=== PATIENT | female | born 1985 | race Caucasian/White ===

== ENCOUNTER 2017-11-02 02:51 | Emergency (ER) | payer OTHER ==
[2017-11-02 03:05] VITALS: TEMP 37; Ht 160 cm
[2017-11-02] MEDS ORDERED: ONDANSETRON 4MG OD TAB PO STA (03:09)
[2017-11-02 05:16] VITALS: BP 101/71; PULSE 88; O2SAT 98
--- NOTE | 2017-11-02 06:45 | DIAGNOSTIC IMAGING REPORT ---
CT OF THE CERVICAL SPINE WITHOUT CONTRAST CLINICAL HISTORY: Fall. COMPARISON STUDY: No previous studies for comparison. TECHNIQUE: Helical axial images of the cervical spine were obtained without IV contrast. Sagittal and coronal reconstructions were viewed. A dose lowering technique was utilized adhering to the principles of ALARA. FINDINGS: There is straightening of the normal cervical lordosis. Craniocervical junction is intact. No acute cervical spine fracture is identified. There is no prevertebral edema. No pneumothorax is shown within visualized portions of the lung apices. Facet joints are intact. IMPRESSION: No acute cervical spine fracture or subluxation. Electronically signed by: Joe Calle M.D. 11/02/2017 6:44 AM Dictated Date/Time: 11/02/2017 6:41 AM
--- NOTE | 2017-11-02 07:09 | DIAGNOSTIC IMAGING REPORT ---
HEAD CT NONCONTRAST CT DOSE: 1091.19 mGy.cm HISTORY: Fall. Head injury TECHNIQUE: Multiaxial CT images of the head were performed without the use of intravenous contrast. Automated exposure control was utilized for this study. A dose lowering technique was utilized adhering to the principles of ALARA. Comparison: None. Findings: The paranasal sinuses and mastoid air cells are clear. The calvarium and skull base are intact. The ventricles and sulci are within normal limits. There is no mass, hematoma, midline shift, or acute infarct. Right posterior scalp swelling. Impression: No acute intracranial abnormality. Right posterior scalp swelling. Electronically signed by: Ilan Lau M.D. 11/02/2017 7:08 AM Dictated Date/Time: 11/02/2017 7:05 AM
--- NOTE | 2017-11-02 23:23 | EMERGENCY ROOM VISIT NOTE ---
History First contact with patient: 03:03 Chief Complaint: FALL Stated Complaint: FELL AND HIT HEAD History of Present Illness The patient is a 32 year old female who presents to the Emergency Room with complaints of fall and head injury that occurred 1 hour prior to arrival. The patient and her went out for dinner and drinks tonight. The patient states that she had 2 mixed drinks, and as she attempted to step up into her boyfriend's vehicle, she slipped, fell backwards, and struck her head. The patient did not bilateral lose consciousness or have seizure-like activity after the injury. There is no blood or bleeding. She was able to stand immediately afterwards. She is slightly nauseated and rates her current discomfort a 7/10. She has not taken anything [id number] for her symptoms. She is unsure of her status. Her last menstrual period was 6 weeks ago. Review of Systems More than 10 systems were reviewed and otherwise negative with the exception of history of present illness. Past Medical/Surgical History No chronic medical disease Family History No pertinent family history Social History Smoking Status: Never Smoker Housing Status: lives with significant other Current/Historical Medications No Active Prescriptions or Reported Meds Physical Exam Vital Signs Date Time Temp Pulse Resp B/P (MAP) Pulse Ox O2 Delivery O2 Flow Rate FiO2 11/02/17 05:16 88 20 101/71 98 Room Air 11/02/17 03:05 37.0 135 19 142/80 97 Room Air Physical Exam VITALS: Vitals are noted on the nurse's note and reviewed by myself. Vital signs stable. GENERAL: Well-developed, well-nourished, female, who is in no acute distress and resting comfortably. Patient is cooperative with the examination. HEAD: There is a 4 cm diameter posterior right scalp hematoma without laceration. No hussein sign or raccoon eyes. EARS: External ear normal. External auditory canals clear, tympanic membranes pearly causey without erythema or effusion bilaterally. EYES: Pupils equal round and reactive to light and accommodation. Conjunctivae without injection, sclerae without icterus. Extraocular movements intact. NOSE: Patent, turbinates without inflammation or discharge. MOUTH: Mucous membranes moist. Tonsils are not enlarged. Pharynx without erythema, blood, or exudate. Uvula midline. Airway patent. NECK: Supple without nuchal rigidity. No lymphadenopathy. No thyromegaly. Cervical spine is nontender. HEART: Regular rate and rhythm without murmurs gallops or rubs. LUNGS: Clear to auscultation bilaterally without wheezes, rales or rhonchi. No retractions or accessory muscle use. ABDOMEN: Positive normal bowel sounds x 4. Soft, nontender, without masses or organomegaly. No guarding or rebound tenderness. MUSCULOSKELETAL: No muscle atrophy, erythema, or edema noted. Full range of motion in all extremities. No tenderness to palpation. Normal gait. Strength 5/5 throughout. NEURO: Patient was alert and oriented to person place and time. CN II through XII grossly intact. No focal neurological deficits. Medical Decision & Procedures ER Provider Diagnostic Interpretation: HEAD CT NONCONTRAST CT DOSE: 1091.19 mGy.cm HISTORY: Fall. Head injury TECHNIQUE: Multiaxial CT images of the head were performed without the use of intravenous contrast. Automated exposure control was utilized for this study. A dose lowering technique was utilized adhering to the principles of ALARA. Comparison: None. Findings: The paranasal sinuses and mastoid air cells are clear. The calvarium and skull base are intact. The ventricles and sulci are within normal limits. There is no mass, hematoma, midline shift, or acute infarct. Right posterior scalp swelling. Impression: No acute intracranial abnormality. Right posterior scalp swelling. CT OF THE CERVICAL SPINE WITHOUT CONTRAST CLINICAL HISTORY: Fall. COMPARISON STUDY: No previous studies for comparison. TECHNIQUE: Helical axial images of the cervical spine were obtained without IV contrast. Sagittal and coronal reconstructions were viewed. A dose lowering technique was utilized adhering to the principles of ALARA. FINDINGS: There is straightening of the normal cervical lordosis. Craniocervical junction is intact. No acute cervical spine fracture is identified. There is no prevertebral edema. No pneumothorax is shown within visualized portions of the lung apices. Facet joints are intact. IMPRESSION: No acute cervical spine fracture or subluxation. Laboratory Results Test 11/02/17 00:00 Urine Color YELLOW Urine Appearance CLEAR (CLEAR) Urine pH 5.0 (4.5-7.5) Urine Specific [place] 1.020 (1.000-1.030) Urine Protein 2+ (NEG) Urine Glucose (UA) NEG (NEG) Urine Ketones TRACE (NEG) Urine Occult Blood NEG (NEG) Urine Nitrite NEG (NEG) Urine Bilirubin NEG (NEG) Urine Urobilinogen NEG (NEG) Urine Leukocyte Esterase NEG (NEG) Urine WBC (Auto) 1-5 /hpf (0-5) Urine RBC (Auto) 0-4 /hpf (0-4) Urine Hyaline Casts (Auto) 10-30 /lpf (0-5) Urine Epithelial Cells (Auto) >30 /lpf (0-5) Urine Bacteria (Auto) 1+ (NEG) Urine Pathogenic Casts /lpf (0) Urine Test NEG (NEG) Medications Administered Medications (Trade) Dose Ordered Sig/Chad Route Start Time Stop Time Status Last Admin Dose Admin Ondansetron HCl (Zofran Odt) 4 mg NOW STAT PO 11/02/17 03:09 11/02/17 03:10 DC 11/02/17 03:14 4 MG ED Course Physical exam and history were performed. Nursing notes, EMR, and Medication List were personally reviewed. Patient appears to have suffered a fall with subsequent head injury tonight. The patient is nauseated. She was given Zofran here in the department. Urine was collected and is negative for . CT scan of the head and neck was performed and reviewed by myself and radiology as showing no acute findings. The patient was monitored for several hours here in the emergency department. She did not have any evolution or worsening of her symptoms. The patient appears well and is comfortable with discharge home. She was given head injury instructions, as well as instructions for conservative care. She was otherwise invited back to the ER with any new, worsening, or concerning symptoms. The chart was completed utilizing [employer] Speech Voice Recognition Software. Grammatical errors, random word insertions, pronoun errors, and incomplete sentences are an occasional consequence of this system due to software limitations, ambient noise, and hardware issues. Any formal questions or concerns about the content, text, or information contained within the body of this dictation should be directly addressed to the provider for clarification. . Medical Decision Differential diagnosis: Etiologies such as concussion, contusion, fracture, subdural hematoma, epidural hematoma, intraparenchymal hemorrhage, as well as other traumatic pathologies were entertained. Impression Primary Impression: Closed head injury Additional Impression: Fall Departure Information Dispostion Home / Self-Care Condition GOOD Prescriptions No Active Prescriptions or Reported Meds Forms HOME CARE DOCUMENTATION FORM, IMPORTANT VISIT INFORMATION Patient Instructions My [facility] Additional Instructions You were seen and evaluated today on an emergency basis only. This is not a substitute for, or an effort to provide, complete comprehensive medical care. It is not possible to recognize and treat all injuries or illnesses in a single emergency department visit. For this reason it is recommended that you followup with your primary care physician in the next 2-3 days for recheck. For baseline pain relief you may alternate ibuprofen and acetaminophen every 4 hours for pain control. Take 600 mg ibuprofen (Advil) and then 4 hours later take 1000 mg acetaminophen (Tylenol). Do not take more than 3000 mg acetaminophen in a single day. You are welcome to return to the emergency department anytime with new, worsening, or concerning symptoms. Problem Qualifiers
--- NOTE | 2017-11-04 20:20 | Pharmacy Progress Note ---
ED Pharmacist Culture FollowUp Date of Service: Nov 04, 2017. Called patient regarding Klebsiella isolated in urine culture. Rang > 1 minute - no answer, no voicemail box set up.
== END 2017-11-02 05:18 | disposition home or self-care (01) ==
LOC: C.EDB 02:53
DX: S00.03XA Contusion of scalp, initial encounter (principal); R11.0 Nausea; W01.10XA Fall on same level from slipping, tripping and stumbling with subsequent striking against unspecified object, initial encounter; Y93.89 Activity, other specified